=== PATIENT | male | born 1960 | race Two or more races ===

== ENCOUNTER 2020-04-04 18:08 | Emergency (ER) | payer BC ==
[~2020-04-04] VITALS: Ht 180.3 cm; Wt 61.0 kg
[2020-04-04 18:15] VITALS: BP 141/70
[2020-04-04] MEDS ORDERED: KETOROLAC 30MG/ML VIAL IM NR (19:00)
[2020-04-04 19:42] LABS: CLARITY URINE CLEAR (CLEAR); COLOR URINE YELLOW (YELLOW); KETONES URINE TRACE (NEGATIVE); LEUKOCYTE ESTERASE URINE NEGATIVE (NEGATIVE); NITRITE URINE NEGATIVE (NEGATIVE); OCCULT BLOOD URINE NEGATIVE (NEGATIVE); PH URINE 5.5 (4.5-8.0); PROTEIN URINE TRACE (NEGATIVE); SPECIFIC GRAVITY URINE 1.029 (1.005-1.030); UROBILINOGEN URINE 0.2 E.U./dL (0.2-1.0)
== END 2020-04-04 21:15 | disposition home or self-care (01) ==
LOC: ER 18:41
DX: M54.41 Lumbago with sciatica, right side (principal); M54.12 Radiculopathy, cervical region; E11.9 Type 2 diabetes mellitus without complications; Z98.890 Other specified postprocedural states
CPT/HCPCS: 72040; 72100; 81003; 82962; 96372; 99284; J1885